=== PATIENT | male | born 1955 | race Caucasian/White ===

== ENCOUNTER 2017-07-21 19:11 | Emergency (ER) | payer OTHER ==
[~2017-07-21] VITALS: Ht 172.7 cm; Wt 113.0 kg
[2017-07-21 19:13] VITALS: BP 160/88
[2017-07-21] MEDS ORDERED: OMEP-110 PO (19:45)
[2017-07-21] MEDS ORDERED: ESCI20TA PO (19:46)
[2017-07-21] MEDS ORDERED: LOSA50TA6 PO (19:46)
[2017-07-21] MEDS ORDERED: ALBU8.5H8 ENDO (19:47)
[2017-07-21] MEDS ORDERED: HYDR-3241 PO (19:48)
== END 2017-07-21 20:26 | disposition home or self-care (01) ==
LOC: ED 20:10
DX: R04.0 Epistaxis (principal); I10 Essential (primary) hypertension; Z87.891 Personal history of nicotine dependence
CPT/HCPCS: 99281